=== PATIENT | female | born 1990 | race Caucasian/White ===

== ENCOUNTER 2017-08-11 09:15 | Emergency (ER) | payer OTHER ==
[~2017-08-11 09:15] MED LIST: ACE325 PO; ACET-1718 PO; ACET-1966 PO; AUG500 PO; BCP; BUPR1FIL7; CIPR-344 PO; CLON-327 PO; CLON0.1T14 PO; CYC10 PO; CYCL10TA29; CYCL10TA29 PO; GAB300 PO; HYDR-3083 PO; HYDR-3250 PO; HYDR-385; HYDR-385 PO; HYDR-4308 PO; HYDR-4309 PO; HYDR25CA13 PO; HYDR473S4 PO; HYDR50CA47 PO; IBUP400T13 PO; IBUP800T37 PO; KET10 PO; LEVO50TA86 PO; LEVO75TA68 PO; LIO5 PO; LOR5 PO; LOR5/325 PO; METH-543 PO; NAPR500T75 PO; NO MEDS; NO ROUTINE MEDS; OXYC-373 PO; PEN250 PO; PENI-24 PO; PER PO; PERCOCET; PRE20 PO; PRED20TA6 PO; PREN-123 PO; PREN1TAB15 PO; PRO25 PO; PROP100T2 PO; TIZA4CAP3 PO; TRA50 PO; TRAZ-133 PO; VEN375 PO
--- NOTE | 2017-08-11 09:17 | ER Report ---
History and Physical Time Seen By MD: 09:17 HPI/ROS CHIEF COMPLAINT: Sick for the last 48 hours HISTORY OF PRESENT ILLNESS: Patient with cough bodyaches headache generalized malaise and fatigue for the past 48 hours. Also complaining of productive cough of green sputum REVIEW OF SYSTEMS: Respiratory: Productive cough Cardiovascular: Chest tightness, no palpitations Gastrointestinal: No vomiting, no abdominal pain. Musculoskeletal: No back pain. Bodyaches Allergies: Coded Allergies: tramadol HCl (Verified Allergy, Intermediate, RASH, VOMITING, 05/23/15) Home Meds Active Scripts Oseltamivir Phosphate (TAMIFLU) 75 Mg Cap, 75 MG PO BID, #10 CAP 0 Refills Prov:HALLIE CABRAL MD 08/11/17 Guaifenesin/Pseudoephedrne Hcl (MUCINEX D ER 1,200-120 MG TAB) 1 Each Tab.er.12h , 1 EACH PO Q12H for cough, #30 TAB 0 Refills Prov:HALLIE CABRAL MD 08/11/17 Azithromycin (ZITHROMAX) 250 Mg Tablet, 0 PO QDAY, #6 TAB 0 Refills 2 tabs by mouth on day one; then 1 tab by mouth daily for 4 days Prov:HALLIE CABRAL MD 08/11/17 Reported Medications Citalopram Hydrobromide (CELEXA) 20 Mg Tablet, 20 MG PO QDAY, #5 TAB 08/11/17 Buprenorphine Hcl/Naloxone Hcl (SUBOXONE 8 MG-2 MG SL FILM) 1 Each Film, #11 04/25/15 Discontinued Reported Medications Levothyroxine Sodium (LEVOTHYROXINE SODIUM) 50 Mcg Tablet, 50 MCG PO DAILY, #30 04/25/15 Past Medical/Surgical History Noncontributory Hx Smoking: No Smoking Status: Never Smoker Exposure to Second Hand Smoke?: No Hx Substance Use Disorder: No Hx Alcohol Use: No Constitutional Physical Exam General Appearance: The patient is alert, has no immediate need for airway protection and no signs of toxicity. Eyes: Pupils equal and round no pallor or injection. ENT, Mouth: Mucous membranes are moist. Respiratory: Wheezing with prolonged expiratory phase scattered rhonchi Cardiovascular: Regular rate and rhythm. [ ] Gastrointestinal: Abdomen is soft and non tender, no masses, bowel sounds normal. Neurological: Awake and alert Skin: Warm and dry, no rashes. Musculoskeletal: Neck is supple non tender. Extremities are nontender, nonswollen and have full range of motion. Medical Decision Making Data Points Laboratory Hematology Test 08/11/17 09:20 Urine Color Yellow Urine Clarity Clear Urine pH 7.0 pH (4.8-9.5) Urine Specific [place] 1.021 Urine Protein Negative mg/dL (NEGATIVE) Urine Glucose (UA) Negative mg/dL (NEGATIVE) Urine Ketones Negative mg/dL (NEGATIVE) Urine Blood Negative (NEGATIVE) Urine Nitrite Negative (NEGATIVE) Urine Bilirubin Negative (NEGATIVE) Urine Urobilinogen 4.0 mg/dL (0.2-1.9) Urine Leukocyte Esterase Negative (NEGATIVE) Urine RBC <1 /HPF (0-2/HPF) Urine WBC 1 /HPF (0-5/HPF) Urine Squamous Epithelial Cells Many /LPF (</=FEW) Urine Amorphous Crystals Few /HPF Urine Bacteria Negative /HPF (NONE-FEW) Urine Mucus Few /HPF (NONE-FEW) Urine HCG, Qualitative Negative (NEGATIVE) Influenza Virus Type A (PCR) Negative (NEGATIVE) Influenza Virus Type B (PCR) Negative (NEGATIVE) Chemistry Test 08/11/17 09:20 Urine Color Yellow Urine Clarity Clear Urine pH 7.0 pH (4.8-9.5) Urine Specific [place] 1.021 Urine Protein Negative mg/dL (NEGATIVE) Urine Glucose (UA) Negative mg/dL (NEGATIVE) Urine Ketones Negative mg/dL (NEGATIVE) Urine Blood Negative (NEGATIVE) Urine Nitrite Negative (NEGATIVE) Urine Bilirubin Negative (NEGATIVE) Urine Urobilinogen 4.0 mg/dL (0.2-1.9) Urine Leukocyte Esterase Negative (NEGATIVE) Urine RBC <1 /HPF (0-2/HPF) Urine WBC 1 /HPF (0-5/HPF) Urine Squamous Epithelial Cells Many /LPF (</=FEW) Urine Amorphous Crystals Few /HPF Urine Bacteria Negative /HPF (NONE-FEW) Urine Mucus Few /HPF (NONE-FEW) Urine HCG, Qualitative Negative (NEGATIVE) Influenza Virus Type A (PCR) Negative (NEGATIVE) Influenza Virus Type B (PCR) Negative (NEGATIVE) Urinalysis Test 08/11/17 09:20 Urine Color Yellow Urine Clarity Clear Urine pH 7.0 pH (4.8-9.5) Urine Specific [place] 1.021 Urine Protein Negative mg/dL (NEGATIVE) Urine Glucose (UA) Negative mg/dL (NEGATIVE) Urine Ketones Negative mg/dL (NEGATIVE) Urine Blood Negative (NEGATIVE) Urine Nitrite Negative (NEGATIVE) Urine Bilirubin Negative (NEGATIVE) Urine Urobilinogen 4.0 mg/dL (0.2-1.9) Urine Leukocyte Esterase Negative (NEGATIVE) Urine RBC <1 /HPF (0-2/HPF) Urine WBC 1 /HPF (0-5/HPF) Urine Squamous Epithelial Cells Many /LPF (</=FEW) Urine Amorphous Crystals Few /HPF Urine Bacteria Negative /HPF (NONE-FEW) Urine Mucus Few /HPF (NONE-FEW) Urine HCG, Qualitative Negative (NEGATIVE) EKG/Imaging Imaging Chest x-ray negative for pneumonia or other acute process ED Course/Re-evaluation ED Course 08/11/2017 10:11:26 am plan at this time will be to perform influenza swab we will also obtain a chest x-ray to look for pneumonia we will do a breathing treatment as well this time due to wheezing On Exam Decision to Disposition Date: Aug 11, 2017 Decision to Disposition Time: 10:11 Depart Departure Latest Vital Signs Impression: Primary Impression: Acute bronchitis Condition: Improved Disposition: HOME OR SELF-CARE New Scripts Oseltamivir Phosphate (TAMIFLU) 75 Mg Cap 75 MG PO BID, #10 CAP 0 Refills Prov: HALLIE CABRAL MD 08/11/17 Guaifenesin/Pseudoephedrne Hcl (MUCINEX D ER 1,200-120 MG TAB) 1 Each Tab.er.12h 1 EACH PO Q12H for cough, #30 TAB 0 Refills Prov: HALLIE CABRAL MD 08/11/17 Azithromycin (ZITHROMAX) 250 Mg Tablet 0 PO QDAY, #6 TAB 0 Refills 2 tabs by mouth on day one; then 1 tab by mouth daily for 4 days Prov: HALLIE CABRAL MD 08/11/17 Departure Forms: ER Transition Record, Medications Reconciliation, Off Work/ School Form, School or Work Release?: Work Number of days to be released: 4 Patient Portal Information Patient Instructions: Acute Bronchitis (GEN), Influenza (DC) Problem Qualifiers Primary Impression: Acute bronchitis Bronchitis organism: Mycoplasma pneumoniae Qualified Codes: J20.0 - Acute bronchitis due to Mycoplasma pneumoniae HALLIE CABRAL MD Aug 11, 2017 09:17
[2017-08-11] MEDS ORDERED: CITA-156 PO (09:29)
[2017-08-11 09:30] VITALS: BP 121/86
[2017-08-11] MEDS ORDERED: IBUPROFEN 600 MG TAB TH PO ONE (09:30)
[2017-08-11] MEDS ORDERED: ALBUTEROL/IPRATROPIUM 3 ML NEB NEB ONE (09:30)
[2017-08-11] MEDS ORDERED: IBUPROFEN 600 MG TAB PO ONE (09:35)
[2017-08-11] MEDS ORDERED: AZIT-1 PO (10:08)
[2017-08-11] MEDS ORDERED: GUAI-645 PO (10:08)
[2017-08-11] MEDS ORDERED: ALBUTEROL SULFATE 90 MCG/ACT 8.5 GM HNH INH ONE (10:10)
[2017-08-11] MEDS ORDERED: OSE75 PO (10:13)
--- NOTE | 2017-08-11 10:19 | RADIOLOGY IMAGING REPORT ---
FACILITY: [facility] PATIENT NAME: Urmila Shea : 1990 MR: [id number] V: [id number] EXAM DATE: ORDERING PHYSICIAN: HALLIE CABRAL TECHNOLOGIST: Location: [facility] [place] Patient: Urmila Shea : 1990 Visit/Account:[id number] Date of Sevice: 08/11/2017 2 VIEWS CHEST INDICATION: Cough. COMPARISON: None available FINDINGS: The lungs are clear. No effusion or pneumothorax is seen. Heart size and mediastinal contours are nor mal. IMPRESSION: 1. No radiographic evidence of active disease. Report Dictated By: Romel Anders at 08/11/2017 10:12 AM Report E-Signed By: Romel Anders at 08/11/2017 10:14 AM WSN:[id number]
== END 2017-08-11 10:20 | disposition home or self-care (01) ==
LOC: ER 09:19
DX: J20.0 Acute bronchitis due to Mycoplasma pneumoniae (principal)
CPT/HCPCS: 71046; 81001; 81025; 87502; 94640; 99283; J7620

== ENCOUNTER → 2017-12-31 | Outpatient (CLI) | payer OTHER ==
[~2017-12-31] MED LIST changes: +AZIT-1 PO; +CITA-156 PO; +GUAI-645 PO; +OSE75 PO
== END ==
LOC: LAB 15:14
PROVIDERS: ATTEND Obstetrics & Gynecology
DX: Z34.90 Encounter for supervision of normal pregnancy, unspecified, unspecified trimester (principal)
CPT/HCPCS: 81001; 87088

== ENCOUNTER → 2018-01-25 | Outpatient (CLI) | payer OTHER | LOC: LAB 14:31 | PROVIDERS: ATTEND Obstetrics & Gynecology | DX: O99.280 Endocrine, nutritional and metabolic diseases complicating pregnancy, unspecified trimester (principal) | CPT/HCPCS: 36415; 84443 ==

== ENCOUNTER → 2018-03-06 | Outpatient (CLI) | payer OTHER ==
[~2018-03-06] MED LIST changes: +LEVO-3 PO
== END ==
LOC: LAB 13:56
PROVIDERS: ATTEND Obstetrics & Gynecology
DX: O99.280 Endocrine, nutritional and metabolic diseases complicating pregnancy, unspecified trimester (principal)
CPT/HCPCS: 36415; 84443

== ENCOUNTER → 2018-03-28 | Outpatient (CLI) | payer OTHER ==
--- NOTE | 2018-03-28 14:17 | RADIOLOGY IMAGING REPORT ---
FACILITY: [facility] [place] PATIENT NAME: Urmila Shea : 1990 MR: [id number] V: [id number] EXAM DATE: ORDERING PHYSICIAN: ROBBY SINGH TECHNOLOGIST: Location: [facility] Patient: Urmila Shea : 1990 Visit/Account:[id number] Date of Sevice: 03/28/2018 [facility] OB ANATOMICAL SURVEY HISTORY: Anatomic survey COMPARISON: None. TECHNIQUE: Transabdominal imaging was performed for assessment of the fetus and maternal pelvic s tructures. Transvaginal imaging was not performed. FINDINGS: Intrauterine gestations: One. presentation: Variable. heart rate: 169 bpm. Amniotic fluid volume: ; KYLAH 13.07 cm; MVP 4.16 cm. Placenta: Posterior, the placenta is low-lying with the distal tip approximately 1 cm from the electrical intern al cervical os. Uterus: Gravid, otherwise grossly unremarkable where visualized. Maternal adnexa/ovaries: Grossly unremarkable, ovaries not visualized. Cervix: Grossly long and closed. Gestational Parameters: BPD: 4.85 cm, 41st percentile HC: 18.31 cm, 33rd percentile AC: 15.78 cm, 45th percentile FL: 2.38 cm, 32nd percentile Average ultrasound age (AUA): 20 weeks/ six days Estimated age based on LMP: 20 weeks/ six days, 48th percentile Estimated weight (EFW): 376 grams +/- 55 grams Anatomic Survey: Intracranial structures, 4-chamber heart, stomach, kidneys, urinary bladder, spine, 3-vessel cord and cord insertion are unremarkable. Two upper and two lower extremities visualized. IMPRESSION: There is a single viable fetus in variable presentation with an estimated gestational age by [facility] ents of 20 weeks and six days. The estimated weight is 376 g. KYLAH 13.07 cm, MVP 4.16 cm Report Dictated By: Nitza Wang MD at 03/28/2018 2:06 PM Report E-Signed By: Nitza Wang MD at 03/28/2018 2:13 PM WSN:[email or web address]
== END ==
LOC: RAD 09:21
PROVIDERS: ATTEND Obstetrics & Gynecology
DX: Z34.90 Encounter for supervision of normal pregnancy, unspecified, unspecified trimester (principal)

== ENCOUNTER → 2018-04-24 | Outpatient (CLI) | payer OTHER ==
[~2018-04-24] MED LIST changes: +AZIT-17 PO; +BENZ100C4 PO; +FLU60VIA41 IM; -HYDR-4308 PO; -HYDR-4309 PO; +HYDR-653 PO; +HYDR-654 PO; +LEVO150T78 PO
== END ==
LOC: LAB 09:34
PROVIDERS: ATTEND Obstetrics & Gynecology
DX: O99.280 Endocrine, nutritional and metabolic diseases complicating pregnancy, unspecified trimester (principal)
CPT/HCPCS: 36415; 84443

== ENCOUNTER → 2018-05-23 | Outpatient (CLI) | payer OTHER ==
[~2018-05-23] MED LIST changes: +DIPH0.5D12 IM; +RHO(150015 IM
[2018-05-23 15:32] LABS: PLATELET COUNT, AUTOMATED 207 K/uL (150-450)
== END ==
LOC: LAB 08:06
PROVIDERS: ATTEND Obstetrics & Gynecology
DX: Z34.92 Encounter for supervision of normal pregnancy, unspecified, second trimester (principal)
CPT/HCPCS: 36415; 82950; 85025

== ENCOUNTER 2018-06-07 07:04 | Outpatient (RCR) | payer OTHER ==
[~2018-06-07 07:04] MED LIST changes: +BUTA1TAB14 PO
--- NOTE | 2018-06-07 15:43 | RADIOLOGY IMAGING REPORT ---
FACILITY: [facility] PATIENT NAME: Urmila Shea : 1990 MR: [id number] V: [id number] EXAM DATE: ORDERING PHYSICIAN: ROBBY SINGH TECHNOLOGIST: Location: [facility] [place] Patient: Urmila Shea : 1990 Visit/Account:[id number] Date of Sevice: 06/07/2018 Exam type: VENOUS DOPP LOWER BILAT EXTREM History: right thigh, left calf pain Comparison: None. Findings: The lower extremity veins were imaged bilaterally including the common femoral veins greater saphenou s vein superficial femoral veins popliteal veins posterior tibial veins and anterior tibial veins per moya veins revealing no evidence of intraluminal thrombi. The veins were compressible and demonstra kevin augmentation IMPRESSION: 1. No sonographic evidence of DVT involving the lower extremity veins bilaterally Report Dictated By: Nitza Wang MD at 06/07/2018 3:37 PM Report E-Signed By: Nitza Wang MD at 06/07/2018 3:38 PM JOSN:[email or web address]
[2018-06-07] MEDS ORDERED: LEVO175T42 PO (15:46)
== END 2018-06-07 18:00 | disposition home or self-care (01) ==
LOC: US 07:04 → EDSTATUS 07:04 → US 18:00
PROVIDERS: ATTEND Obstetrics & Gynecology
DX: O99.280 Endocrine, nutritional and metabolic diseases complicating pregnancy, unspecified trimester (principal); M79.651 Pain in right thigh; M79.662 Pain in left lower leg
CPT/HCPCS: 36415; 84443; 93970

== ENCOUNTER → 2018-07-12 | Outpatient (CLI) | payer OTHER ==
[~2018-07-12] MED LIST changes: +LEVO175T42 PO; +OMEP-137 PO
== END ==
LOC: LAB 08:49
PROVIDERS: ATTEND Obstetrics & Gynecology
DX: Z34.93 Encounter for supervision of normal pregnancy, unspecified, third trimester (principal)
CPT/HCPCS: 87081

== ENCOUNTER → 2018-07-18 | Outpatient (CLI) | payer OTHER ==
--- NOTE | 2018-07-18 14:07 | RADIOLOGY IMAGING REPORT ---
FACILITY: [facility] PATIENT NAME: Urmila Shea : 1990 MR: [id number] V: [id number] EXAM DATE: ORDERING PHYSICIAN: ROBBY SINGH TECHNOLOGIST: Location: [facility] [place] Patient: Urmila Shea : 1990 Visit/Account:[id number] Date of Sevice: 07/18/2018 [facility] OB FOLLOW-UP HISTORY: UTERINE SIZE-DATE DISCREPANCY, THIRD TRIMESTER Comparisons made to an initial ultrasound from 01/25/2018 FINDINGS: Intrauterine gestations: 1 presentation: Vertex heart rate: 129 bpm Amniotic fluid volume: KYLAH 14 cm; Largest amniotic fluid pocket 5.9 cm Placenta: Posterior No placenta previa or retroplacental hemorrhage. Uterus: Gravid, otherwise normal Maternal adnexa: Negative Cervix: Closed Gestational Parameters: BPD: 9.0 cm; 36 weeks/ 3 days HC: 32.3 cm; 36 weeks/ 4 days AC: 32.6 cm; 36 weeks/ 4 days FL: 7 cm; 36 weeks/ 0 days Average ultrasound age (AUA): 36 weeks/ 3 days Estimated weight (EFW): 2922 grams +/- 427 grams fetus is in the 42nd percentile based [place]. IMPRESSION: IUP of approximately 36 weeks three days. DARY of 08/12/2018. This correlates well with the initial ul trasound from 01/25/2018 which had an DARY calculated at 08/14/2018 Report Dictated By: Carson Leblanc MD at 07/18/2018 1:58 PM Report E-Signed By: Carson Leblanc MD at 07/18/2018 2:02 PM WSN:[email or web address]
== END ==
LOC: US 11:00
PROVIDERS: ATTEND Obstetrics & Gynecology
DX: O26.843 Uterine size-date discrepancy, third trimester (principal)

== ENCOUNTER 2018-08-02 05:27 | Inpatient (IN) | payer OTHER ==
[~2018-08-02] VITALS: Ht 167.6 cm; Wt 65.3 kg
[2018-08-02] MEDS ORDERED: METOCLOPRAMIDE 10 MG/2 ML SDV IVP PRN (05:30)
[2018-08-02] MEDS ORDERED: TERBUTALINE SULF 1 MG/ML VIAL SUBQ PRN (05:30)
[2018-08-02] MEDS ORDERED: fentaNYL CITR 100 MCG/2 ML AMP IVP PRN (05:30)
[2018-08-02] MEDS ORDERED: FAMOTIDINE(*) 20MG/50ML PREMIX 50 ML IVPB PRN (05:30)
[2018-08-02] MEDS ORDERED: LIDOCAINE 1% LOCAL 300 MG/30ML INJ PRN (05:30)
[2018-08-02] MEDS ORDERED: ceFAZolin(*) 2GM/D5W 50ML 50 ML IVPB PRN (05:30)
[2018-08-02] MEDS ORDERED: ONDANSETRON 4 MG/2 ML VIAL IVP PRN (05:30)
[2018-08-02] MEDS ORDERED: OXYTOCIN 30 UNIT/D5LR 500 ML 500 ML IV PRN (05:30)
[2018-08-02 05:40] VITALS: BP 139/72; Ht 167.6 cm; Wt 65.3 kg
[2018-08-02] MEDS ORDERED: PREN-127 PO (05:59)
[2018-08-02] MEDS: LR(*) 1000 ML BAG 1,000 ML IV PRN ×2 (06:23→08:22)
[2018-08-02 06:34] LABS: PLATELET COUNT, AUTOMATED 179 K/uL (150-450)
[2018-08-02] MEDS ORDERED: LIDO/EPI 2% MPF 1:200,000 20ML EPI PRN (06:40)
[2018-08-02] MEDS ORDERED: EPIDURAL KEYS XX PRN (06:40)
[2018-08-02] MEDS ORDERED: FENTANYL/ROPIVACAINE 100 ML BAG EPI PRN (06:40)
[2018-08-02] MEDS ORDERED: BUPIVACAINE 0.25% MPF INJ EPI PRN (06:40)
[2018-08-02] MEDS ORDERED: LIDOCAINE/PF 2% 200MG/10ML AMP 200 MG/10 ML AMPUL EPI PRN (06:40)
[2018-08-02] MEDS ORDERED: fentaNYL CITR 100 MCG/2 ML AMP IT PRN (06:40)
--- NOTE | 2018-08-02 08:03 | History & Physical ---
History of Present Illness EDC per LMP: Aug 09, 2018 Estimated Gestational Age: 39 Chief Complaint Induction History of Present Illness 27-year-old at 39w0d presents for induction of labor. She denies LOF, VB or preeclampsia symptoms. She reports good FM. PNC by IMG. PNR reviewed. c/b Rh negative, hypothyroid, hx opioid dependence (on suboxone) and first child with cleft palate. History Patient's Blood Type: B Negative Rubella Status: Immune Group B Strep Screen: Negative Obstetrical History: G1: FT (5#14oz) G2: Current Past Medical History: PMH: Chronic back pain with hx of opioid dependence, migraines, endometriosis, anxiety/depression PSH: Lscope for endometriosis and ovarian cystectomy Allergies: Coded Allergies: tramadol HCl (Verified Allergy, Intermediate, RASH, VOMITING, 05/23/15) Social History: Partner present, denies use of tobacco, alcohol, or illicit drugs. Family History: Degenerative joint disease MOTHER FH: diabetes mellitus FATHER FH: kidney disease MOTHER Med Rec Home Meds Active Scripts Omeprazole (OMEPRAZOLE) 20 Mg Tablet.dr, 20 MG PO QDAY, #30 TAB 4 Refills Prov:ROBBY SINGH MD 06/27/18 Levothyroxine Sodium (LEVOTHYROXINE SODIUM) 175 Mcg Tablet, 175 MCG PO QDAY, #45 TAB 0 Refills Prov:ROBBY SINGH MD 06/07/18 Butalb/Acetaminophen/Caff 50-325-40 Mg (FIORICET 50-325-40) 1 Each Tablet, 1-2 TAB PO Q4H PRN for HEADACHE, #30 TAB 1 Refill Prov:ROBBY SINGH MD 06/06/18 Reported Medications Vits W-Ca,Fe,Fa(<1MG) ( VITAMINS) 1 Each Tablet, 1 EACH PO DAILY, TAB 08/02/18 Buprenorphine Hcl/Naloxone Hcl (SUBOXONE 8 MG-2 MG SL FILM) 1 Each Film, #11 04/25/15 Discontinued Scripts Azithromycin (Z-PACK) 250 Mg Tablet, 0 PO QDAY, #6 DOSE-PACK 0 Refills Prov:ROBBY SINGH MD 07/18/18 Azithromycin (Z-PACK) 250 Mg Tablet, 250 MG PO DIRECTED, #6 DOSE-PACK Take as directed Prov:ROBBY SINGH MD 07/18/18 Review of Systems Constitutional: No Fever Neurological: No Syncope Eyes: No Vision Change Cardiovascular: No Chest Pain Respiratory: No Shortness of Breath, No Cough Gastrointestinal: No Nausea, No Vomiting, No Diarrhea Genitourinary: No Dysuria Musculoskeletal: No Pain Psychiatric: Depression, Anxiety Exam General Exam Vital Signs Vital Signs Date Time Temp Pulse Resp B/P (MAP) Pulse Ox O2 Delivery O2 Flow Rate FiO2 08/02/18 05:40 98.3 94 19 139/72 (94) 100 Room Air General Apperance: Alert/Awake/No Acute Distress Neuro: No Gross deficits Eyes: Normal Extraocular Movement & Vison Cardiovascular: Regular Rate and Rhythm Respiratory: No Respiratory Distress, Clear to Auscultation Abdomen: Gravid - Non-Tender : Normal Musculoskeletal: No Weakness/Pain Extremities: No Cyanosis,Clubbing or Edema Integumentary: Skin Intact without Lesions or Rash Psychological: Alert & Oriented X3, Appropriate Mood & Affect Cervical Dialation: 3 Cervical Effacement (%): 50 Cervical Consistency: Moderate Cervical Position: Posterior Station: 0 Presentation: Vertex Uterine Contractions(Q min): 5 Uterine Contraction Strength: Mild UC Resting Tone: Soft Fetus Feeling Movement?: Yes FHT Category: I Medical Decision Making Data Points Result Diagram: 08/02/18 06 Pre-Admit Course Medical Record Review: Yes VTE Prophylasis: Adult Deep Vein Thrombosis/Pulmonary: No Pharmacological Contraindicati: Surgical Contraindication Mechanical Contraindications: Pt at Low Risk for VTE Assessment and Plan Problems: (1) 39 weeks gestation of Assessment & Plan: 27-year-old at 39w0d presents for induction of labor. Pitocin started. Pt to receive epidural prior to AROM. (2) Rh negative status during Assessment & Plan: Rhophylac evaluation . ROBBY SINGH MD Aug 02, 2018 08:03
--- NOTE | 2018-08-02 09:33 | Labor Progress Note ---
Labor Subjective Progress Notes Subjective Patient is now comfortable with epidural. She has no concerns. Labor Objective Vital Signs Vital Signs Date Time Temp Pulse Resp B/P (MAP) Pulse Ox O2 Delivery O2 Flow Rate FiO2 08/02/18 05:40 98.3 94 19 139/72 (94) 100 Room Air Vaginal Discharge/Fluid?: Clear Fluid Cervical Dialation: 5 Cervical Effacement (%): 80 Cervical Consistency: Soft Cervical Position: Posterior Station: 0 Presentation: Vertex Uterine Contractions(Q min): 3 Uterine Contraction Strength: Moderate UC Resting Tone: Soft Fetus FHT Category: I General Exam General Appearance: Alert/Awake/No Acute Distress Psychological: Alert & Oriented X3, Appropriate Mood & Affect Other Result Diagram: 08/02/18 0624 Assessment and Plan Problems: (1) 39 weeks gestation of Assessment & Plan: AROM with clear fluid. Anticipate . (2) Rh negative status during ROBBY SINGH MD Aug 02, 2018 09:33
--- NOTE | 2018-08-02 12:35 | Anesthesia OB Pre-Anes Eval ---
History of Present Illness Anesthesia Start Date: Aug 02, 2018 Anesthesia Start Time: 07:55 OB Anesthesia Diagnosis: induction - elective EDC: Aug 09, 2018 : 2 Para: 1 Pain Ratin Result Diagram: 08/02/18 0624 Height (Inches): 66.00 Weight (Pounds): 144 Past Medical History Medical History: no pertinent history Surgical History: noncontributory Previous Anesthesia: general, epidural Attended Childbirth Classes?: No Hx Anesthesia Reactions: No Hx Family Anesthesia Reaction: No Home Meds Active Scripts Omeprazole (OMEPRAZOLE) 20 Mg Tablet.dr, 20 MG PO QDAY, #30 TAB 4 Refills Prov:ROBBY SINGH MD 06/27/18 Levothyroxine Sodium (LEVOTHYROXINE SODIUM) 175 Mcg Tablet, 175 MCG PO QDAY, #45 TAB 0 Refills Prov:ROBBY SINGH MD 06/07/18 Butalb/Acetaminophen/Caff 50-325-40 Mg (FIORICET 50-325-40) 1 Each Tablet, 1-2 TAB PO Q4H PRN for HEADACHE, #30 TAB 1 Refill Prov:ROBBY SINGH MD 06/06/18 Reported Medications Vits W-Ca,Fe,Fa(<1MG) ( VITAMINS) 1 Each Tablet, 1 EACH PO DAILY, TAB 08/02/18 Buprenorphine Hcl/Naloxone Hcl (SUBOXONE 8 MG-2 MG SL FILM) 1 Each Film, #11 04/25/15 Discontinued Scripts Azithromycin (Z-PACK) 250 Mg Tablet, 0 PO QDAY, #6 DOSE-PACK 0 Refills Prov:ROBBY SINGH MD 07/18/18 Azithromycin (Z-PACK) 250 Mg Tablet, 250 MG PO DIRECTED, #6 DOSE-PACK Take as directed Prov:ROBBY SINGH MD 07/18/18 Allergies: Coded Allergies: tramadol HCl (Verified Allergy, Intermediate, RASH, VOMITING, 05/23/15) Anesthesia OB ROS Airway Class: l GI ROS: clear liquids, ice chips Last Solids Date: Aug 01, 2018 Last Solids Time: 18:00 Musculoskeletal ROS: low back pain (Arthritis, no history of surgery) ASA Classification: 2 Assessment and Plan Anesthesia Plan: LEB Anesthesia Stop Day: Aug 02, 2018 Anesthesia Stop Time: 12:20 Epidural Catheter Removal: Removed by: (Catheter will be removed by RN at more convenient time for mother/baby.) HALLIE SHANNON [employer] Aug 02, 2018 08:43
--- NOTE | 2018-08-02 12:43 | Procedure Note ---
Anesthetic Placement Note Anesthesia Plan: LEB Permit for Anesthesia Signed: Yes Anesthesia Technique: Patient Sitting Anesthesia Prep: Betadine Interspace: L 3-4 Local Anesthetic: 1% Lidocaine, 25 Gauge Needle Amount Local - cc's: 3 Anesthesia Needle: 17g Touhy/Schliff Anesthesia Attempts: 1 Loss of Resistance: Air Catheter Insertion (cm): 6 Catheter Type: [place] - Spring Wound Epidural Dressing: Tegaderm, Tape, Adhesive [place] Anesthesia Tray: Lot Number ([id number]), Expiration Date (2019-06-07), Reference Number ([id number]) Anesthesia Medications: Epidural Test Dose: 1.5 Lido/Epi (1:200,000), Dose - mL (3), Time (0811), Negative (No symptoms IT or IV injection.) Epidural Loading Dose: 0.2% Ropivicaine, With Fentanyl 2mcg/ml, Dose - ml (15ml in 5ml increments.), Time (0815) Epidural Infusion: 0.2% Ropivicaine, With Fentanyl 2mcg/ml, Start Time: (0830) Epidural Pump Setting: Bolus Dose - mL (5), Lockout - Minutes (15), Maintenance Rate - mL/hr (8), Maximum per Hour - mL (23) Complications: None Comment: Pt reports sensory/motor block more pronounced on Rt side with some block symptoms on left. Positioned on left side and epidural catheter pulled back 1cm, dressing remains intact. 1040 Catheter disconnected from hub. Prepped with betadine swab x2, cut with sterile scissors, hub reattached. Bolus with 10ml infusion solution. 1100 Satisfactory analgesia, minimal motor block, R=L. 1205 Uneventful vaginal delivery. 1220 Infusion disconnected from epidural catheter, sterile syringe on hub, will be pulled later. HALLIE SHANNON CRNA Aug 02, 2018 08:48
--- NOTE | 2018-08-02 13:26 | OB Delivery Note ---
Delivery Note Vaginal Delivery Type: Spont. Vaginal Delivery Delivery Date: Aug 02, 2018 Delivery Time: 12:05 Estimated Gestational Age(wks): 39 Labor Stage III (minutes): 3 Delivery Anesthesia: Epidural Sex: Female Weight (gms): 3008 Apgars: 1 Minute (9), 5 Minute (9) Estimated Blood Loss: 200 Notes: Indications: Pt presented for elective IOL at 39wks. She presented at 3cm and was given pitocin. AROM at 5cm. Procedure: The patient was noted to be complete. She was placed in the dorsal lithotomy position and prepped and draped usual fashion for a vaginal delivery. She was asked to push and within only a few contractions was able to deliver the infant's vertex spontaneously in the JUNO position over an intact perineum. A nuchal cord was checked but not noted. The anterior shoulder delivered easily followed by the posterior shoulder. The remainder of the of the was then easily delivered. The had spontaneous cry and spontaneous movement of all extremities. The infant was dried, the oropharynx and nasopharynx were bulb suctioned. The was then passed to mother's abdomen where nursing personnel was in attendance. Pitocin was started to IV fluid to help firm the uterus. Cord blood was then obtained and passed off the table. The placenta subsequently delivered spontaneously intact was passed off the table at 1208 hrs. Examination of the cervix, vaginal vault and perineum revealed a first- degree midline vaginal laceration. This was bleeding somewhat, therefore a 4-0 Vicryl was placed for hemostasis. All sponge and needle counts were correct at the end of this procedure. The patient tolerated this procedure well and recovered in labor and delivery with her . ROBBY SIGNH MD Aug 02, 2018 13:26
[2018-08-02] MEDS ORDERED: BENZOCAINE 20% 60 ML BTL TP PRN (13:30)
[2018-08-02] MEDS ORDERED: MAGNESIUM HYDROXIDE* 30ML UDCP PO PRN (13:30)
[2018-08-02] MEDS ORDERED: GLYCERIN/WITCH HAZEL LEAF 1 PK TP PRN (13:30)
[2018-08-02] MEDS ORDERED: HYDROCORTISONE 2.5% CR 30GM TB PR PRN (13:30)
[2018-08-02] MEDS ORDERED: LANOLIN OINT 7 GM TUBE TP PRN (13:30)
[2018-08-02] MEDS: IBUPROFEN 800 MG TAB PO SCH ×2 (14:23→21:32)
[2018-08-02 15:59] VITALS: BP 113/58
[2018-08-02] MEDS: ACETAMINOPHEN 325 MG TAB PO PRN (16:11)
[2018-08-02 19:09] VITALS: BP 117/56
[2018-08-02] MEDS: DOCUSATE CALCIUM 240 MG CAP PO SCH (21:32)
[2018-08-02 23:29] VITALS: BP 113/69
[2018-08-03 03:02] VITALS: BP 92/51
[2018-08-03] MEDS: ACETAMINOPHEN 325 MG TAB PO PRN ×3 (03:54→16:51)
[2018-08-03] MEDS: IBUPROFEN 800 MG TAB PO SCH ×2 (05:27→13:36)
[2018-08-03 09:00] VITALS: BP 121/71
[2018-08-03] MEDS: DOCUSATE CALCIUM 240 MG CAP PO SCH (09:05)
--- NOTE | 2018-08-03 09:08 | OB/GYN Progress Note ---
OB Subjective Progress Notes Subjective Doing well. Pain controlled with oral medications. Tolerating regular diet. Ambulating. Voiding. Normal lochia. No preeclampsia symptoms. Her only concern is pain behind her right knee. She has known varicosities and has had venous dopplers during which have always been negative. OB Objective Physical Exam Vital Signs Date Time Temp Pulse Resp B/P (MAP) Pulse Ox O2 Delivery O2 Flow Rate FiO2 08/03/18 03:02 97.9 67 14 92/51 (65) 96 Room Air Intake and Output 08/03/18 07:00 Intake Total 1720 ml Output Total 1800 ml Balance -80 ml Intake Oral 220 ml IV Total 1500 ml Output Urine Total 1800 ml # Voids 3 General Appearance: Alert/Awake/No Acute Distress Neurological: No Gross deficits Eyes: Normal Extraocular Movement & Vison Cardiovascular: Normal Rhythm & Peripheral Pulses, Regular Rate and Rhythm Respiratory: No Respiratory Distress, Clear to Auscultation Abdomen: Soft, Non-Tender, Non-Distended, Fundus Firm Extremities: No Cyanosis,Clubbing or Edema Integumentary: Skin Intact without Lesions or Rash Psychological: Alert & Oriented X3, Appropriate Mood & Affect Result Diagram: 08/02/18 0624 Assessment and Plan Problems: (1) examination following vaginal delivery Assessment & Plan: PPD#1 s/p . Will order venous doppler. She has a varicosity behind her right knee that I suspect has superficial thrombophlebitis. Will continue NSAID and apply heat. In the meantime, rule out DVT. The patient is requesting discharge today if possible. She will go to rooming in status while the baby works through blood sugar and feeding concerns. (2) Rh negative status during Assessment & Plan: Baby is Rh positive. Will plan Rhophylac today. ROBBY SINGH MD Aug 03, 2018 09:08
--- NOTE | 2018-08-03 09:52 | Anesthesia Post Eval Note ---
Anesthesia Post Eval Note Vital Signs Date Time Temp Pulse Resp B/P (MAP) Pulse Ox O2 Delivery O2 Flow Rate FiO2 08/03/18 03:02 97.9 67 14 92/51 (65) 96 Room Air Pt able to participate in Eval: Yes Cardiovascular Status: Satisfactory Respiratory Status: Satisfactory Pain Managment: Satisfactory PO Nausea/Vomiting: Satisfactory Temperature Management: Satisfactory Mental Status: Satisfactory, Alert, Oriented X3 Post-Op Hydration Status: Satisfactory, Tolerating PO Well, Voiding w/o Difficulty Anesthesia Tolerance: Tolerated procedure well without apparent anesthetic complications. LP site clear, no redness or edema. Denies headache or any residual paresthesia. Vital Signs Stable, Patient comfortable and condition stable. Having some leg pain, being evaluated by Physician. LEONARDO BERMUDEZ CRNA Aug 03, 2018 09:52
[2018-08-03] MEDS ORDERED: IBUP800T37 PO (10:13)
--- NOTE | 2018-08-03 10:15 | OB/GYN Progress Note ---
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 No new concerns from pt perspective. OB Objective Physical Exam Vital Signs Date Time Temp Pulse Resp B/P (MAP) Pulse Ox O2 Delivery O2 Flow Rate FiO2 08/03/18 03:02 97.9 67 14 92/51 (65) 96 Room Air Intake and Output 08/03/18 06:59 Intake Total 1720 ml Output Total 1800 ml Balance -80 ml Intake Oral 220 ml IV Total 1500 ml Output Urine Total 1800 ml # Voids 3 General Appearance: Alert/Awake/No Acute Distress Neurological: No Gross deficits Eyes: Normal Extraocular Movement & Vison Cardiovascular: Normal Rhythm & Peripheral Pulses, Regular Rate and Rhythm Respiratory: No Respiratory Distress, Clear to Auscultation Abdomen: Soft, Non-Tender, Non-Distended, Fundus Firm Extremities: No Cyanosis,Clubbing or Edema Integumentary: Skin Intact without Lesions or Rash Psychological: Alert & Oriented X3, Appropriate Mood & Affect Result Diagram: 08/02/18 0624 Imaging Awaiting final report, but tech reports no deep thrombus. She does have superficial thrombus behind right knee and in right groin. Assessment and Plan Problems: (1) examination following vaginal delivery Assessment & Plan: PPD#1 s/p . The patient is requesting discharge today if possible. She will go to rooming in status while the baby works through blood sugar and feeding concerns. (2) Superficial thrombophlebitis during puerperium, Assessment & Plan: No DVT on venous doppler. Discussed precautions for possi ble development of DVT. Will plan NSAID with omeprazole for 2 weeks as well as heat. (3) Rh negative status during Assessment & Plan: Baby is Rh positive. Will plan Rhophylac today. ROBBY SINGH MD Aug 03, 2018 10:15
--- NOTE | 2018-08-03 10:17 | OB/GYN Discharge Summary ---
Discharge Summary Reason for Hosp/Final Diag: (1) examination following vaginal delivery Hospital Course & Plan: PPD#1 s/p . The patient is requesting discharge today if possible. She will go to rooming in status while the baby works through blood sugar and feeding concerns. (2) Superficial thrombophlebitis during puerperium, Hospital Course & Plan: No DVT on venous doppler. Discussed precautions for possible development of DVT. Will plan NSAID with omeprazole for 2 weeks as well as heat. (3) Rh negative status during Hospital Course & Plan: Baby is Rh positive. Will plan Rhophylac today. Lates Vital Signs Vital Signs Date Time Temp Pulse Resp B/P (MAP) Pulse Ox O2 Delivery O2 Flow Rate FiO2 08/03/18 03:02 97.9 67 14 92/51 (65) 96 Room Air Weight (Pounds): 144 Result Diagram: 08/02/18623 Condition: Improved Discharge: Home, Self Assisted Meds Active Scripts Omeprazole (OMEPRAZOLE) 20 Mg Tablet.dr, 20 MG PO QDAY, #30 TAB 4 Refills Prov:ROBBY SINGH MD 06/27/18 Levothyroxine Sodium (LEVOTHYROXINE SODIUM) 175 Mcg Tablet, 175 MCG PO QDAY, #45 TAB 0 Refills Prov:ROBBY SINGH MD 06/07/18 Butalb/Acetaminophen/Caff 50-325-40 Mg (FIORICET 50-325-40) 1 Each Tablet, 1-2 TAB PO Q4H PRN for HEADACHE, #30 TAB 1 Refill Prov:ROBBY SINGH MD 06/06/18 Reported Medications Vits W-Ca,Fe,Fa(<1MG) ( VITAMINS) 1 Each Tablet, 1 EACH PO DAILY, TAB 08/02/18 Buprenorphine Hcl/Naloxone Hcl (SUBOXONE 8 MG-2 MG SL FILM) 1 Each Film, #11 04/25/15 Discontinued Scripts Azithromycin (Z-PACK) 250 Mg Tablet, 0 PO QDAY, #6 DOSE-PACK 0 Refills Prov:ROBBY SINGH MD 07/18/18 Azithromycin (Z-PACK) 250 Mg Tablet, 250 MG PO DIRECTED, #6 DOSE-PACK Take as directed Prov:ROBBY SINGH MD 07/18/18 Follow up Referrals: 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
--- NOTE | 2018-08-03 10:34 | RADIOLOGY IMAGING REPORT ---
FACILITY: [facility] PATIENT NAME: Urmila Shea : 1990 MR: [id number] V: [id number] EXAM DATE: ORDERING PHYSICIAN: ROBBY SINGH TECHNOLOGIST: Location: [facility] - [place] Patient: Urmila Shea : 1990 Visit/Account:[id number] Date of Sevice: 08/03/2018 US VENOUS LOWER EXT RT Indication: 27-year-old female with right thigh pain. Comparison: Ultrasound from June 07, 2018. Procedure: There has been satisfactory grayscale as well as color flow and Doppler waveform analysis of the deep vessels of the right lower extremity. Findings: The common femoral, profunda femoral, superficial femoral, popliteal and infrapopliteal ves sels so far as visualized are compressible with grayscale imaging. All these vessels show flow with c olor Doppler imaging. Following calf compression there is normal directional augmentation of the Dopp ler waveform. The left common femoral vein is compressible with grayscale imaging and has normal flow with color fl ow and Doppler waveform evaluation. In the subcutaneous tissues lateral to the knee there varicose veins that are noncompressible and hav e internal echoes suggestive of thrombus. The thrombus does not appear to extend into the greater sap henous vein so far is demonstrated. The findings are suggestive of superficial venous thrombophlebiti s. IMPRESSION: 1. No findings of deep vein thrombosis in the right lower extremity. 2. There are thrombosed varicosities in the subcutaneous tissues of the right lateral knee. The varic osities measure greater than 5 mm in size. The findings are consistent with superficial venous thromb ophlebitis. Note the clot does not extend into the greater saphenous vein but the entire length of th e greater saphenous vein was not specifically imaged. The visualized portions of the right greater sa phenous vein appear unremarkable. 3. The left common femoral vein is unremarkable. There are also thrombosed varicosities in the left i nguinal region adjacent to what appears to be a normal left greater saphenous vein. 4. Further evaluation with a superficial venous reflux study is recommended for further evaluation. Note if this patient desires treatment for varicose veins she can contact the [facility] at [phone]. Results were called to ROBBY SINGH M.D. At 08/03/2018 10:26 AM. Report Dictated By: Robin Ryder MD at 08/03/2018 10:22 AM Report E-Signed By: Robin Ryder MD at 08/03/2018 10:30 AM WSN:[id number]
[2018-08-03 10:52] VITALS: BP 108/65
[2018-08-04] MEDS ORDERED: MEASLES,MUMP,RUBELLA VAC 0.5ML SUBQ ONE (09:00)
[2018-08-04] MEDS ORDERED: INFLUENZA VIRUS VAC 0.5ML SYR IM ONLY ONE (09:00)
[2018-08-04] MEDS ORDERED: DIPHTH/TETANUS/ACEL. PERTUSSIS IM ONLY ONE (09:00)
== END 2018-08-03 16:55 | disposition home or self-care (01) | DRG 806 ==
LOC: OB 05:27
PROVIDERS: ADMIT Obstetrics & Gynecology; ATTEND Obstetrics & Gynecology
PROC: 10E0XZZ Delivery of Products of Conception, External Approach (ICD-10-PCS; principal; 2018-08-02)
PROC: 10907ZC Drainage of Amniotic Fluid, Therapeutic from Products of Conception, Via Natural or Artificial Opening (ICD-10-PCS; 2018-08-02)
PROC: 0HQ9XZZ Repair Perineum Skin, External Approach (ICD-10-PCS; 2018-08-02)
PROC: 3E033VJ Introduction of Other Hormone into Peripheral Vein, Percutaneous Approach (ICD-10-PCS; 2018-08-02)
PROC: 3E0334Z Introduction of Serum, Toxoid and Vaccine into Peripheral Vein, Percutaneous Approach (ICD-10-PCS; 2018-08-03)
DX: O36.0130 Maternal care for anti-D [Rh] antibodies, third trimester, not applicable or unspecified (principal); O87.0 Superficial thrombophlebitis in the puerperium; Z37.0 Single live birth; O70.0 First degree perineal laceration during delivery; E03.9 Hypothyroidism, unspecified; O99.284 Endocrine, nutritional and metabolic diseases complicating childbirth; Z3A.39 39 weeks gestation of pregnancy; Z88.6 Allergy status to analgesic agent
CPT/HCPCS: 36415; 85025; 85461; 86703; 86850; 86870; 86900; 86901; J2590; J2791; J7120

== ENCOUNTER → 2018-08-26 | Outpatient (CLI) | payer OTHER ==
[2018-08-02 05:40] VITALS: BMI 23.2
[~2018-08-26] MED LIST changes: +AMOX875T60 PO; +FLUT16SP19 NS; +PREN-127 PO
--- NOTE | 2018-08-26 16:00 | RADIOLOGY IMAGING REPORT ---
FACILITY: [facility] [place] PATIENT NAME: Urmila Shea : 1990 MR: [id number] V: [id number] EXAM DATE: ORDERING PHYSICIAN: ROBBY SINGH [place]CHNOLOG[place]: [place] [facility] [place] Urmila Shea : 1990 Visit/Account:[id number] Date of Sevice: 08/26/2018 US VENOUS LOWER EXT RT HISTORY: right lower extremity pain, superficial FINDINGS: Grayscale compression, duplex and color Doppler interrogation of the RIGHT lower extremity deep vein s from common femoral vein to proximal calf was performed. The greater saphenous vein was evaluated u sing similar technique. Common femoral vein negative Femoral vein negative Deep femoral vein - negative Popliteal vein negative Visualized deep calf veins negative Greater saphenous vein in the proximal thigh negative Popliteal fossa: negative Focus of superficial thrombophlebitis seen in the posterior lateral aspect of the leg just above the knee. IMPRESSION: 1. Negative right leg for DVT. 2. Focal area of superficial thrombophlebitis seen in the posterior lateral right leg just above the knee. Recommend correlation Report Dictated By: Carson Leblanc MD at 08/26/2018 3:52 PM Report E-Signed By: Carson Leblanc MD at 08/26/2018 3:55 PM WSN:[id number]
== END ==
LOC: US 14:48
PROVIDERS: ATTEND Obstetrics & Gynecology
DX: O87.0 Superficial thrombophlebitis in the puerperium (principal)

== ENCOUNTER 2018-09-12 14:00 | Outpatient (RCR) | payer OTHER ==
[2018-08-02 05:40] VITALS: Wt 62.1 kg
[~2018-09-12 14:00] MED LIST changes: -DIPH0.5D12 IM; +DIPH0.5S2 IM; -PREN1TAB15 PO; +PRENATAL ONE T1 EAC1 PO
[2018-09-12 14:04] VITALS: BP 113/71
[2018-09-12] MEDS ORDERED: BUPR1FIL5 SL (14:08)
[2018-09-12 14:55] LABS: INR 0.96
--- NOTE | 2018-09-12 22:26 | [facility] ONCOLOGY NOTE ---
EVENT DATE: September 12, 2018 REFERRING PHYSICIAN Cyndie Narayan MD REASON FOR CONSULTATION Evaluation and management of superficial thrombophlebitis of the right lower extremity. HEMATOLOGY HISTORY Patient is a 28-year-old female who delivered her second baby around six weeks ago. Following her delivery, patient had some pain in her varicosities in the right lower extremity, so the patient had a Doppler ultrasound done on the July, which did not show any evidence of DVT, but there were thrombosed varicosities in the subcutaneous tissues of the right lateral knee consistent with superficial venous thrombophlebitis. There was no extension of the clot into the greater saphenous vein. There was also left common femoral vein unremarkable, and there was also thrombosed varicosities in the left inguinal region. Patient was using Advil for pain control, and she had repeat Doppler ultrasound of the right lower extremity, which showed the superficial thrombophlebitis in those varicosities in the right lateral knee, but there was no evidence of any deep venous thrombosis. Patient denies any chest pain or shortness of breath. PAST MEDICAL HISTORY 1. Endometriosis. 2. History of ovarian cyst. 3. Hypothyroidism. PAST SURGICAL HISTORY Removal of ovarian cyst. FAMILY HISTORY Negative for cancer or blood diseases. SOCIAL HISTORY Patient is with two children. She works as a maintenance and custodian supervisor. Denies any abuse of tobacco, alcohol, or illicit drugs. CURRENT MEDICATIONS 1. Levothyroxine 175 mcg. 2. Advil p.r.n. for pain. 3. Suboxone for pain. ALLERGIES No known drug allergies. REVIEW OF SYSTEMS CONSTITUTIONAL: No appetite or weight change. No fever, chills, or sweating. No recent infection. HEENT: Ears: No tinnitus or hearing problem. Nose: No nasal discharge or epistaxis. Throat: No sore throat or mouth ulcers. Eyes: No diplopia or visual changes. RESPIRATORY: No shortness of breath. No cough, expectoration, or hemoptysis. CARDIOVASCULAR: No chest pain, orthopnea, or paroxysmal nocturnal dyspnea (PND). No edema. No palpitations. GASTROINTESTINAL: No nausea or vomiting. No diarrhea or constipation. No change in bowel movements. No heartburn or swallowing difficulties. No abdominal pain. No jaundice. No hematemesis, melena, or rectal bleeding. GENITOURINARY: No hematuria or dysuria. MUSCULOSKELETAL: She has back pain. NEUROLOGICAL: No tingling or numbness in the hands or feet. She has occasional headache. No convulsions. HEMATOLOGIC/LYMPHATIC: No bleeding or easy bruising. No weakness or fatigue. No enlarged lymph nodes. SKIN: No skin rash or lumps. PSYCHIATRIC: No anxiety or depression. PHYSICAL EXAMINATION GENERAL: Looks stable. Well developed, well nourished, and in no acute distress. VITAL SIGNS: Blood pressure 113/71, pulse 74 per minute, respirations 16 per minute, temperature 97.5, pulse ox 92% on room air. HEENT: Head: Atraumatic. No sinus tenderness to palpation. Eyes: No icterus or conjunctivitis. Mouth and throat: No oral thrush or mucositis. NECK: Supple. No cervical or supraclavicular lymphadenopathy. LUNGS: Clear to auscultation and percussion bilaterally. HEART: Regular rate and rhythm. No gallops, murmurs, clicks, or rubs. ABDOMEN: Soft and lax. No tenderness. No hepatosplenomegaly. No masses. EXTREMITIES: No cyanosis, clubbing, or edema. LYMPHATICS: No peripheral lymphadenopathy. NEUROLOGICAL: Conscious, alert, and oriented times three. No focal motor or sensory deficits. PSYCHIATRIC: Mood and affect appear normal. SKIN: No skin rash, bruise, or purpuric eruption. ASSESSMENT Superficial thrombophlebitis involving the varicosities in the right lateral knee and in the left inguinal area. There was no evidence of deep venous thrombosis with the two ultrasounds done in July and August 2018. I am planning to put her on a short course of anticoagulation with Coumadin, which is the safest drug as the patient is lactating her baby currently. I would like to check her PT and PTT prior to starting the anticoagulation. After starting Coumadin, and I will start by 5 mg daily, I am planning to get an INR in five days from now. I will maintain her on the anticoagulation for three to four weeks, and I will see her after that with another Doppler ultrasound to see if there is any resolution of the superficial thrombophlebitis. I explained that to the patient. Patient agreeable with the plan of management. PLAN 1. Check PT, PTT today. 2. Coumadin 5 mg daily. 3. Check PT, INR in five days after starting Coumadin and adjust the dose of Coumadin accordingly. 4. Patient to return in four weeks from now with Doppler ultrasound of the right lower extremity. 5. Patient to contact us for any new concerns or complaints. MAHIN
[2018-10-01] MEDS ORDERED: NORE0.3536 PO (09:41)
== END 2018-12-09 13:41 | disposition home or self-care (01) ==
LOC: ONC 14:00
PROVIDERS: ATTEND Internal Medicine Hematology
DX: I80.9 Phlebitis and thrombophlebitis of unspecified site (principal)
CPT/HCPCS: 85610; 85730; 99202